=== PATIENT | female | born 1935 | race Caucasian/White ===

== ENCOUNTER 2017-02-15 05:43 | Inpatient (IN) | payer MEDICARE, OTHER ==
[2017-02-12 11:13] VITALS: BMI 26.7
[~2017-02-15] VITALS: Ht 162.6 cm; Wt 73.6 kg
[2017-02-15] VITALS (24 sets, daily range): BP systolic 94–153; BP diastolic 53–85; PULSE 61–74; RESP 12–18; Ht 162.6 cm; Wt 73.6 kg
[~2017-02-15 05:43] MED LIST: ASPI81TA3 PO; CELE200C PO; LANS30TA6 PO; SIMV20TA2 PO; SYN1 PO; VALS1TAB80 PO
[2017-02-15] MEDS ORDERED: CEFAZOLIN 2 GM/50 ML (PMX) 50 ML IVPB SCH (06:00)
[2017-02-15] MEDS ORDERED: BUPIVACAINE 0.25% (MPF) 30 ML INJ ONE (06:45)
[2017-02-15] MEDS ORDERED: POLYMYXIN/BACITRACIN 1L IRRIG ONE (06:45)
[2017-02-15] MEDS ORDERED: ROCURONIUM 50 MG INJ ONE (06:48)
[2017-02-15] MEDS ORDERED: LIDOCAINE 2% (SDV) 5 ML INJ ONE (06:48)
[2017-02-15] MEDS ORDERED: PROPOFOL 20 ML ONE (06:48)
--- NOTE | 2017-02-15 06:55 | HPN ---
Date/Time of Note Date/Time of Note DATE: 02/15/17 TIME: 06:55 Interval H&P Admission Note Pt. seen H&P reviewed: No system changes SHANELL AYALA MD Feb 15, 2017 06:55
[2017-02-15] MEDS ORDERED: KETOROLAC 30 MG INJ IV PRN (07:00)
[2017-02-15] MEDS ORDERED: EPHEDrine SULFATE 50 MG/5 ML SYG IV PRN (07:00)
[2017-02-15] MEDS ORDERED: DIPHENHYDRAMINE 50 MG INJ IV PRN (07:00)
[2017-02-15] MEDS ORDERED: LABETALOL HCL 20MG INJ IV PRN (07:00)
[2017-02-15] MEDS ORDERED: hydrALAzine 20 MG INJ IV PRN (07:00)
[2017-02-15] MEDS ORDERED: FENTAnyl 50 MCG/ML VIAL IV PRN ×3 (07:00)
[2017-02-15] MEDS ORDERED: HYDROmorphONE (0.2 MG/ML) 10ML SYG IV PRN ×3 (07:00)
[2017-02-15] MEDS ORDERED: MEPERIDINE 25 MG INJ IV PRN (07:00)
[2017-02-15] MEDS ORDERED: ONDANSETRON 4 MG INJ IV PRN ×2 (07:00→10:30)
[2017-02-15] MEDS ORDERED: METOCLOPRAMIDE 10 MG INJ IV PRN (07:00)
[2017-02-15] MEDS ORDERED: OXYCODONE/ACETAMINOPHEN (5/325) TAB PO PRN ×2 (07:00)
[2017-02-15 07:20] LABS: ADD UMIC YES; UR ASCORBIC ACID NEGATIVE (NEGATIVE); UR BILIRUBIN (Dip) NEGATIVE (NEGATIVE); UR BLOOD (Dip) NEGATIVE (NEGATIVE); UR CLARITY SLIGHTLY CLOUDY (CLEAR); UR COLOR YELLOW (YELLOW); UR GLUCOSE (Dip) NEGATIVE (NEGATIVE); UR KETONES (Dip) NEGATIVE (NEGATIVE); UR LEUKOCYTE ESTERASE (Dip) 2+ Leu/ul (NEGATIVE); UR NITRITE (Dip) NEGATIVE (NEGATIVE); UR NONSQUAMOUS EPITHELIAL CELL 1 /HPF (NONE SEEN); UR RBC 2 /HPF (0-5); UR SQUAMOUS EPITHELIAL CELL FEW /HPF (FEW); UR TOTAL PROTEIN (Dip) NEGATIVE (NEGATIVE); UR UROBILINOGEN (Dip) NEGATIVE (NEGATIVE)
[2017-02-15] MEDS ORDERED: DEXAMETHASONE 4 MG/ML 1 ML INJ ONE (07:38)
[2017-02-15] MEDS ORDERED: morphine 10 MG INJ ONE (07:39)
[2017-02-15] MEDS ORDERED: FENTAnyl 50 MCG/ML VIAL ONE (07:43)
[2017-02-15] MEDS ORDERED: LABETALOL HCL 20MG INJ ONE (07:46)
--- NOTE | 2017-02-15 08:19 | RADRPT ---
PROCEDURE: XR Chest. CLINICAL INDICATION: Preop lumbar surgery TECHNIQUE: AP Portable upright chest. COMPARISON: No pertinent prior examinations were submitted for comparison. FINDINGS: The patient is rotated to the left. The cardiac silhouette is mildly enlarged. The aortic arch is calcified. No focal consolidation, ple ural effusion or pneumothorax is seen. The osseous structures are intact. IMPRESSION: No radiographic evidence of acute cardiopulmonary disease. Mild cardiomegaly. Aortic atherosclerosis. Physician Nazia Date Time Electronically viewed and signed by Physician Nazia on 02/15/2017 08:19 CS/
[2017-02-15] MEDS ORDERED: SUGAMMADEX SODIUM 200 MG/2 ML VIAL IV ONE (08:50)
[2017-02-15] MEDS ORDERED: GELATIN SIZE 100 SPONGE ONE (09:07)
[2017-02-15] MEDS ORDERED: THROMBIN 5000 UNIT VIAL ONE (09:07)
[2017-02-15] MEDS ORDERED: ONDANSETRON 4 MG INJ ONE (09:44)
--- NOTE | 2017-02-15 10:25 | SIPON ---
Date/Time of Note Date/Time of Note DATE: 02/15/17 TIME: 10:23 Operative Report Preoperative Diagnosis Herniated lumbar disc L3-4 on the right Postoperative Diagnosis Same Operation/Procedure Performed Central decompressive laminectomy at L3 Microdiscectomy L3-4 on the right Medial facetectomy and foraminotomy L3-4 on the right Cosmetic wound closure (4 cm) Lateral localizing lumbar radiographs (2) Intraoperative nerve monitoring (3 hours) Surgeon see signature line sales office assistant Etelvina Stout PA-C Anesthesia: general Estimated blood loss: 10 - 50 ml's Transfusion Required none Specimen Spinous process of L3 Herniated disc L3-4 on the right Grafts/Implants none Complications none SHANELL AYALA MD Feb 15, 2017 10:25
[2017-02-15] MEDS ORDERED: ACETAMINOPHEN 325 MG TAB PO PRN (10:30)
[2017-02-15] MEDS ORDERED: AL HYDROX/MG HYDROX/SIMETH 30 ML CUP PO PRN (10:30)
[2017-02-15] MEDS ORDERED: NALOXONE (0.4 MG/ML) INJ IV PRN (10:30)
[2017-02-15] MEDS ORDERED: NACL 0.9% 3 ML SYG IV SCH (10:30)
[2017-02-15] MEDS ORDERED: DIPHENHYDRAMINE 50 MG CAP PO PRN (10:30)
[2017-02-15] MEDS ORDERED: TRIMETHOBENZAMIDE 100 MG/ML VIAL IM PRN (10:30)
[2017-02-15] MEDS ORDERED: DIAZEPAM 5 MG/ML SYG IM PRN (10:30)
[2017-02-15] MEDS ORDERED: CEPASTAT LOZENGE MT PRN (10:30)
[2017-02-15] MEDS ORDERED: BETHANECHOL 25 MG TAB PO PRN (10:30)
[2017-02-15] MEDS ORDERED: DIAZEPAM 5 MG TAB PO PRN (10:30)
[2017-02-15] MEDS ORDERED: PROCHLORPERAZINE 10 MG TAB PO PRN (10:30)
[2017-02-15] MEDS ORDERED: ZOLPIDEM 5 MG TAB PO PRN (10:30)
[2017-02-15] MEDS ORDERED: traMADol 50 MG TAB PO PRN (10:30)
[2017-02-15] MEDS ORDERED: HYDROmorphONE 0.2 MG/ML PCA IV SCH (10:30)
--- NOTE | 2017-02-15 10:40 | RADRPT ---
PROCEDURE: Intraoperative XR. CLINICAL INDICATION: Intraoperative radiograph during lumbar spine surgery. TECHNIQUE: Spot intraoperative lateral lumbar x-ray image was provided. The images were reviewed on a high-resolution PACS workstation. COMPARISON: None available FINDINGS: Spot intraoperative lateral lumbar view were provided during lumbar spine surgery. The images demon strate metallic probes at the L3-8 and L3-4. IMPRESSION: 1. Spot intraoperative lateral lumbar view during lumbar spine surgery were provided. 2. Please see operative report of the same day for further information. RPTAT: HGAS .Adan Bejarano MD, Date Time Electronically viewed and signed by .Adan Bejarano MD, on 02/15/2017 10:40 .S/
--- NOTE | 2017-02-15 10:41 | RADRPT ---
PROCEDURE: Intraoperative XR. CLINICAL INDICATION: Intraoperative radiograph during lumbar spine surgery. TECHNIQUE: Spot intraoperative lateral lumbar x-ray image was provided. The images were reviewed on a high-resolution PACS workstation. COMPARISON: None available FINDINGS: Spot intraoperative lateral lumbar view were provided during lumbar spine surgery. The images demon strate metallic instrumentation at the level of L3-4. IMPRESSION: 1. Spot intraoperative lateral lumbar view during lumbar spine surgery were provided. 2. Please see operative report of the same day for further information. RPTAT: HGAS .Adan Bejarano MD, MD Date Time Electronically viewed and signed by .Adan Bejarano MD, on 02/15/2017 10:41 .S/
--- NOTE | 2017-02-15 11:19 | OPR ---
DATE OF OPERATION: 02/15/2017 PREOPERATIVE DIAGNOSIS: Foraminal herniation L3-4 on the right. POSTOPERATIVE DIAGNOSIS: Foraminal herniation L3-4 on the right. OPERATION PROCEDURES: 1. Central decompressive laminectomy L3. 2. Microdiskectomy L3-4 on the right. 3. Medial facetectomy and foraminotomy, L3-4 on the right. 4. Cosmetic wound closure (4 cm). 5. Lateral localized lumbar radiographs (2). 6. Intraoperative nerve monitoring (3 hours). SURGEON: Andre Belcher MD SUPERVISOR OFFSET PLATE PREPARATION: Etelvina Stout PA-C. ANESTHESIA: General endotracheal BY Dr. Eusebia MD ESTIMATED BLOOD LOSS: 60 mL, none replaced. DRAINS: Two medium Hemovac drains employed. COMPLICATIONS: None. PERTINENT HISTORY AND PHYSICAL: This is an 81-year-old female with back and right leg pain which has been unrelieved by conservative management. She has undergone a number of diagnostic studies including an MRI of the lumbar spine, which demonstrated a foraminal herniation at L3-4 on the right. Treatment options were discussed with the patient, she elected to proceed with surgery. OPERATIVE FINDINGS AT SURGERY: A small right foraminal herniation at L3-4 was confirmed. Baseline intraoperative nerve monitoring revealed a decrease in the left L3 potential 10%, the right L3 potential 30%, the left L4 potential 20%, the right L4 potential 50%, the left L5 potential 20%, the right L5 potential of 60%. These all returned to normal at the completion of surgery. OPERATIVE PROCEDURE: With the patient in supine position after satisfactory induction of general endotracheal anesthesia by Dr. Laws, the patient was turned to the prone kneeling position on the Cher frame. All pressure points were carefully padded. Back was prepped and draped in usual sterile fashion. Athrombic pumps were applied to the legs below the knees to prevent venous stasis during and after the procedure. Two spinal needles were placed next to what was felt to be the L3 and L4 spinous processes, lateral roentgenogram taken which confirmed anatomic localization. A 4 cm incision was then carried out midline over the spinous process of L3 after skin was infiltrated with 0.25% Marcaine without epinephrine for postoperative analgesia. Superficial retractors were placed and hemostasis secured with electrocautery. Throughout the procedure, copious amounts of antibacterial irrigating solution were used to periodically irrigate the wound. The fascia was incised in midline with a hot knife and a bilateral subperiosteal dissection carried out at L3-4. Deep retractors were placed and deep hemostasis secured with electrocautery. A second intraoperative radiograph was taken with deep retractor at what was felt to be the L3-4 interspace and this was confirmed with second x-ray. A central decompressive laminectomy was then carried out using a Roselia right-angle bone rongeur, Leksell rongeur, Kerrison punches and curettes. Ligamentum flavum was excised with sharp dissection. The operating microscope was moved into place. A medial facetectomy and foraminotomy was then accomplished at L3-4 on the right using small hand osteotome, mallet, Kerrison punches and curettes. The L4 root was then mobilized medially and protected with Carolina nerve retractor using microdissection technique. This revealed a herniation of the L3-4 disk extending out into the foramen. A 15 blade knife used to cut a rectangular window in the annulus and posterior longitudinal ligament and multiple degenerative disk fragments were harvested with pituitary rongeurs and sent to laboratory for pathologic study. Additional fragments were harvested using ring curettes and Irina curettes. A thorough search of the floor of the canal was made with an arthroscopic probe and no additional fragments were encountered. The epidural hemostasis was secured with bipolar electrocautery on low setting. The anesthesiologist was asked to perform a Valsalva maneuver at 40 mmHg and no spinal fluid leak was noted. The wound was then closed in layers over 2 medium Hemovac drains, one below the fascia and one above the fascia using #1 Vicryl Stratafix sutures on deep paralumbar musculature and deep fascia of the back, 2-0 Vicryl Stratafix sutures in subcutaneous tissue, and a 4-0 Vicryl subcuticular cosmetic closing suture on the skin. Dermabond and sterile compressive dressings were applied. Patient tolerated the procedure well, was then turned to the supine position onto her bed and extubated by Dr. Laws. She was transported to recovery room in satisfactory condition. At the conclusion of the procedure, sponge, instrument, and needle counts were all correct. NEED FOR SPORTS ATHLETIC TRAINER: During this spinal surgical procedure, my logistics assistant was used to retract and protect the spinal nerves and dural sac. My logistics assistant also employed the suction catheters to evacuate blood from the surgical field to improve visualization of the neural structures. The logistics assistant was medically necessary to facilitate the completion of the surgery in a safe and expeditious manner. State of [place] regulations, as well as hospital bylaws, preclude the use of non-licensed health care personnel such as operating room technicians, to perform these functions. Throughout the procedure, neural monitoring was carried out by [employer] including EMG, SSEP and MEP monitoring of the L3, L4 , L5 and S1 nerve roots bilaterally along with spinal cord potentials. These were interpreted by a neurologist employed by [employer]. Dictated By: ANDRE BELCHER MD TM/NTS Conf#: [id number] DID#: [id number] CC: NEIL TORRES MD;*EndCC* MTDD
[2017-02-15] MEDS: CEFAZOLIN 1 GM/50 ML (PMX) 50 ML IVPB SCH ×3 (11:56→23:14)
[2017-02-15] MEDS: DEXTROSE 5%-0.45% NACL 1,000 ML IV SCH ×3 (11:57→23:14)
--- NOTE | 2017-02-15 14:09 | PREOPHP ---
DATE OF ADMISSION: 02/15/2017 TYPE OF CONSULTATION: Medical. Thank you, Dr. Belcher, for asking me to participate in medical management of this patient. REASON FOR CONSULTATION: To manage the patient's hypertension, hyperlipidemia, gastroesophageal ref lux disease and hypothyroidism. HISTORY OF PRESENT ILLNESS: This 81-year-old female is now postop a lumbar spine surgery by Dr. Gloria ceron. The patient underwent a central decompressive laminectomy at L3 and a microdiscectomy at the L3-L4 level on the right and a medial correct at a medial facetectomy and foraminotomy on the L3-L4 level on the right. The patient preoperatively had a foraminal herniation at the L3-4 level on the right with right leg pain and then back pain. The patient is awake and alert at this time. She se ems comfortable. She denies any chest pain or shortness of breath. The patient did take her antihy pertensive medication this morning. There is a note on the chart from Dr. Davis, a roll up operator who saw the patient preoperatively. He did perform a nuclear cardiac stress test on 02/10/2017 which wa s low probability for coronary artery disease. PAST MEDICAL HISTORY: Remarkable for mixed hyperlipidemia, gastroesophageal reflux disease, hyperte nsion, abnormal ECG and hypothyroidism. CURRENT MEDICATIONS: Include the followin. Diovan HCT 320/12.5. 2. VESIcare 10 mg daily. 3. Simvastatin 20 mg a day. 4. Levoxyl 75 mcg a day. PAST SURGICAL HISTORY: Hysterectomy. PHYSICAL EXAMINATION: GENERAL: At this time reveals a well-developed female in no apparent distress. VITAL SIGNS: Pulse is 64, respirations 13, blood pressure 108/54, O2 saturation 96% on room air. HEENT: Head normocephalic. Eyes: Extraocular muscles intact. NOSE AND MOUTH: Normal. NECK: Supple. No neck vein distention. LUNGS: Clear were clear to auscultation. HEART: Regular rhythm. No murmurs, gallops or rubs. ABDOMEN: Soft, nontender, no masses or megaly. EXTREMITIES: No peripheral edema. IMPRESSION: This patient is now postop a lumbar spine surgery. She is doing well at this time. He r blood pressure is normal. She did take her antihypertensive medication this morning. I will ankush ge the patient's hypertension, hyperlipidemia and gastroesophageal reflux disease and hypothyroidism . PLAN: 1. Resume some routine medications. 2. Check labs in the morning. 3. Postop lumbar spine surgery protocol. 4. I will follow the patient along with you. Dictated By: NEIL TORRES MD, ND/JOSEPH Conf#: [id number] DID#: [id number]
[2017-02-15] MEDS: RANITIDINE 150 MG TAB PO SCH (20:56)
[2017-02-15] MEDS ORDERED: ATORVASTATIN 10 MG TAB PO SCH (21:00)
[2017-02-16 05:00] VITALS: BP 138/68; PULSE 76; RESP 18
[2017-02-16 05:26] LABS: HEMATOCRIT 34.5 % (37.0-47.0); HEMOGLOBIN 10.9 g/dl (12.0-16.0)
[2017-02-16] MEDS: CEFAZOLIN 1 GM/50 ML (PMX) 50 ML IVPB SCH (05:28)
[2017-02-16] MEDS ORDERED: LEVOTHYROXINE 100 MCG TAB PO SCH (06:00)
[2017-02-16] MEDS ORDERED: PANTOPRAZOLE (EC) 40 MG TAB PO SCH (06:00)
[2017-02-16] MEDS: DEXTROSE 5%-0.45% NACL 1,000 ML IV SCH (06:13)
[2017-02-16 06:49] LABS: CALCIUM 9.8 mg/dl (8.4-10.2); CREATININE 0.79 mg/dl (0.44-1.00); POTASSIUM 3.8 mmol/L (3.5-5.1)
[2017-02-16 07:00] VITALS: BP 135/63; RESP 16
--- NOTE | 2017-02-16 07:04 | PN ---
Date/Time of Note Date/Time of Note DATE: 02/16/17 TIME: 07:02 Assessment/Plan Lines/Catheters IV Catheter Type (from [facility]): Saline Lock Subjective 24 Hr Interval Summary Patient is postop day #1 following a microdiscectomy at L3-4 on the right. She is resting comfortably in bed. He is afebrile. Neuro-Vascular structures are intact distally. Her Hemovac has 30 cc and will be discontinued. Wound is clean and dry and was redressed. She will be ambulated with physical therapy as tolerated, and may be discharged home if cleared by physical therapy. Her a.m. lab work is normal, however her BMP is not available yet. Exam/Review of Systems Vital Signs Vitals Vital Signs Date Time Temp Pulse Resp B/P Pulse Ox O2 Delivery O2 Flow Rate FiO2 02/16/17 05:00 98.8 76 18 138/68 97 Room Air 02/15/17 23:35 2.0 Intake and Output 02/15/17 02/15/17 02/16/17 15:00 23:00 07:00 Intake Total 2450 ml 1150 ml 2050 ml Output Total 50 ml 60 ml 1280 ml Balance 2400 ml 1090 ml 770 ml Results Result Diagram: 02/16/17 0452 SHANELL AYALA MD Feb 16, 2017 07:04
[2017-02-16] MEDS ORDERED: BETHANECHOL 25 MG TAB PO PRN (08:00)
[2017-02-16] MEDS: RANITIDINE 150 MG TAB PO SCH (08:19)
[2017-02-16] MEDS: FERROUS SULFATE (EC) 325 MG TAB PO SCH ×2 (08:19→13:13)
[2017-02-16] MEDS ORDERED: DOCUSATE SODIUM 100 MG CAP PO SCH (09:00)
[2017-02-16] MEDS ORDERED: ASCORBIC ACID 500 MG TAB PO SCH (09:00)
[2017-02-16] MEDS ORDERED: VALSARTAN 160 MG TAB PO ONE (09:30)
--- NOTE | 2017-02-16 09:30 | CONS ---
Date/Time of Note Date/Time of Note DATE: 02/16/17 TIME: 09:27 Assessment/Plan Assessment/Plan Chief Complaint/Hosp Course 1. This patient is now one day postop a lumbar spine surgery. She is doing well. Her vital signs are stable and laboratory tests are acceptable. The patient can be discharged today if cleared by physical therapy. Problems: Consultation Date/Type/Reason Admit Date/Time Feb 15, 2017 at 05:43 Initial Consult Date 24 HR Interval Summary Free Text/Dictation She is sitting up in a chair. She is having some pain but it is tolerable. She is ready to get up and walk with physical therapy. Constitutional: improved, no complaints Exam/Review of Systems Vital Signs Vitals Vital Signs Date Time Temp Pulse Resp B/P Pulse Ox O2 Delivery O2 Flow Rate FiO2 02/16/17 07:00 97.3 64 16 135/63 96 02/16/17 05:00 Room Air 02/15/17 23:35 2.0 Intake and Output 02/15/17 02/15/17 02/16/17 15:00 23:00 07:00 Intake Total 2450 ml 1150 ml 2050 ml Output Total 50 ml 60 ml 1280 ml Balance 2400 ml 1090 ml 770 ml Exam Constitutional: alert, oriented, well developed Neck: non-tender, supple Respiratory: clear to auscultation, normal air movement Cardiovascular: regular rate and rhythm Gastrointestinal: non-tender, soft Musculoskeletal: nl extremities to inspection Results Result Diagram: 02/16/17 0452 02/16/17 0452 Results 24 hrs Laboratory Tests Test 02/16/17 04:52 Hemoglobin 10.9 L Hematocrit 34.5 L Sodium Level 139 Potassium Level 3.8 Chloride Level 106 Carbon Dioxide Level 26 Anion Gap 11 Blood Urea Nitrogen 12 Creatinine 0.79 Glucose Level 127 Calcium Level 9.8 Medications Medications Current Medications Dextrose/Sodium Chloride (D5-1/2ns) 1,000 ml @ 100 mls/hr Q10H IV Last administered on 02/15/17t 23:14; Admin Dose 100 MLS/HR; Start 02/15/17 at 10: 13 Zolpidem Tartrate (Ambien) 5 mg HS PRN PO INSOMNIA; Start 02/15/17 at 10:30 Prochlorperazine (Compazine) 10 mg Q4H PRN PO NAUSEA AND/OR VOMITING; Start at 10:30 Trimethobenzamide HCl (Tigan) 200 mg Q4H PRN IM NAUSEA AND/OR VOMITING; Start 02/15/17 at 10:30 Ondansetron HCl (Zofran Inj) 4 mg Q6H PRN IV NAUSEA AND/OR VOMITING; Start at 10:30 Al Hydrox/Mg Hydrox/Simethicone (Mag-Al Plus) 15 ml Q4H PRN PO CONSTIPATION; Start 02/15/17 at 10:30 Docusate Sodium (Colace) 100 mg BID PO Last administered on 02/16/17 08:19; Admin Dose 100 MG; Start 02/16/17 at 09:00 Acetaminophen (Tylenol Tab) 650 mg Q4H PRN PO TEMP GREATER THAN 101F OR ARGUETA; Start 02/15/17 at 10:30 Ascorbic Acid (Vitamin C) 1,000 mg BID PO Last administered on 02/16/17 08:19 ; Admin Dose 1,000 MG; Start 02/16/17 at 09:00 Ferrous Sulfate (Ferrous Sulfate (Ec)) 325 mg TID PO Last administered on 02/16 08:19; Admin Dose 325 MG; Start 02/16/17 at 09:00 Ranitidine HCl (Zantac) 150 mg BID PO Last administered on 02/16/17 08:19; Admin Dose 150 MG; Start 02/15/17 at 21:00 Diazepam (Valium) 5 mg Q4H PRN PO MUSCLE SPASMS; Start 02/15/17 at 10:30 Diazepam (Valium) 5 mg Q4H PRN IM MUSCLE SPASMS; Start 02/15/17 at 10:30 Phenol (Cepastat Lozenge) 1 lozenge PRN PRN MT SORE THROAT; Start 02/15/17 at 10:30 Bethanechol Chloride (Urecholine) 25 mg PRN PRN PO UNABLE TO VOID; Start 02/15 at 10:30 Diphenhydramine HCl (Benadryl) 50 mg Q6H PRN PO PRURITUS; Start 02/15/17 at 10 :30 Hydromorphone HCl (Dilaudid INSTRUCTIONAL INTERVENTIONIST) Q4PCA IV Last administered on 02/15/17 11: 06; Admin Dose 4 MG; Start 02/15/17 at 10:30 Naloxone HCl (Narcan) 0.2 mg Q2M PRN IV RR 8 BREATHS/MIN OR LESS; Start at 10:30 Tramadol HCl (Ultram) 50 mg Q6H PRN PO PAIN Last administered on 02/16/17 08: 20; Admin Dose 50 MG; Start 02/15/17 at 10:30 Levothyroxine Sodium (Synthroid) 100 mcg DAILY@06 PO Last administered on 02/16 05:28; Admin Dose 100 MCG; Start 02/16/17 at 06:00 Pantoprazole (Protonix Tab) 40 mg DAILY@06 PO Last administered on 02/16/17 05:28; Admin Dose 40 MG; Start 02/16/17 at 06:00 Atorvastatin Calcium (Lipitor) 10 mg DAILY@21 PO Last administered on 20:57; Admin Dose 10 MG; Start 02/15/17 at 21:00 Bethanechol Chloride (Urecholine) 25 mg PRN PRN PO UNABLE TO VOID; Start 02/16 at 08:00 NEIL TORRES MD Feb 16, 2017 09:29
[2017-02-16 14:00] VITALS: BP 138/65; RESP 18
== END 2017-02-16 15:30 | disposition home or self-care (01) | DRG 520 ==
LOC: REC 05:43 → MS1 11:30
PROVIDERS: ADMIT Orthopaedic Surgery; ATTEND Orthopaedic Surgery
PROC: 01NB0ZZ Release Lumbar Nerve, Open Approach (ICD-10-PCS; 2017-02-15)
PROC: 0SB20ZZ Excision of Lumbar Vertebral Disc, Open Approach (ICD-10-PCS; principal; 2017-02-15 07:00)
DX: M51.26 Other intervertebral disc displacement, lumbar region (principal); I10 Essential (primary) hypertension; E78.2 Mixed hyperlipidemia; K21.9 Gastro-esophageal reflux disease without esophagitis; Z87.891 Personal history of nicotine dependence; E03.9 Hypothyroidism, unspecified
CPT/HCPCS: 71010; 72020; 80048; 81001; 85014; 85018; 86850; 86900; 86901; 86920; 97116; 97162; 97530; J0690; J1100; J1170; J2270; J2405; J3010; J7042